=== PATIENT | female | born 1955 | race Caucasian/White ===

== ENCOUNTER 2022-02-02 07:52 | Inpatient (IN) ==
[2022-02-02] MEDS ORDERED: ENOXAPARIN 100 MG/ML SYRINGE SUBCUT STA (08:11)
[2022-02-02] MEDS ORDERED: ASPIRIN 325 MG TABLET PO STA (08:11)
[2022-02-02] MEDS ORDERED: NITROGLYCERIN SL 0.4 MG TABLET SL PRN (08:11)
[2022-02-02 08:30] LABS: Basophils # 0.1 10*3/uL (0.0-0.2); Basophils % 1.1 % (0.0-0.8); Eosinophils # 0.1 10*3/uL (0.0-0.87); Eosinophils % 1.6 % (0.00-10.9); Hematocrit 40.9 VOL% (35.7-47.0); Hemoglobin 13.1 GM/DL (12.0-16.0); Immature Granulocytes % 0.4 %; Immature Granulocytes Absolute 0.02 #; Lymphocytes # 1.2 10*3/uL (1.4-4.0); Lymphocytes % 21.1 % (21.3-54.2); Mean Corpuscular Volume 100.2 FL (87-102); Mean Platelet Volume 10.2 FL (9.6-12.0); Monocytes # 0.5 10*3/uL (0.11-0.8); Monocytes % 8.5 % (1.7-12.7); Neutrophils % 67.3 % (38.7-73.9); Platelet Count 212 T/CUMM (130-400); Red Blood Count 4.08 MC/CUMM (3.8-5.5); Red Cell Distribution Width 13.1 % (9.3-17.3); White Blood Count 5.6 T/CUMM (4-12)
[2022-02-02 08:56] LABS: Albumin 3.6 G/DL (3.4-5.0); Bilirubin,Total 0.4 MG/DL (0.20-1.00); Calcium 8.9 MG/DL (8.5-10.1); Osmolality,Calculated 282.4 MOS/KG (273-304); Potassium 3.5 MMOL/L (3.5-5.1); Total Protein 7.2 G/DL (6.4-8.2)
[2022-02-02] MEDS ORDERED: ONDANSETRON 4 MG/2 ML VIAL IV PRN (09:29)
[2022-02-02] MEDS ORDERED: DEXTROSE 50% 25 GM/50 ML VIAL IV PRN (09:49)
[2022-02-02] MEDS ORDERED: GLUCAGON 1 MG VIAL IM PRN (09:49)
[2022-02-02] MEDS ORDERED: DEXTROSE 10% 250 ML BAG IV PRN (09:49)
[2022-02-02 09:57] LABS: PT Patient Result 10.7 SECS (10.1-12.1)
[2022-02-02] MEDS: FAMOTIDINE 20 MG/2 ML VIAL IV SCH ×2 (10:06→21:23)
[2022-02-02] MEDS: SODIUM CHLORIDE 0.9% 1,000 ML IV SCH ×3 (10:06→23:25)
[2022-02-02] MEDS: ALBUTEROL 2.5 MG/3 ML NEB RESP TX PRN (10:20)
[2022-02-02 10:31] LABS: ABG Base Excess 1.1 MMOL/L (-2.5-2.5); ABG HCO3 25.4 MMOL/L (20-26); ABG Oxygen Saturation 96.8 % (95-100); ABG PCO2 39.9 MM HG (35-48); ABG PH 7.416 (7.35-7.45); ABG PO2 93.5 MM HG (80-95); ABG TCO2 22.2 MMOL/L (23-27)
[2022-02-02 11:33] LABS: Bacteria,Urine Occasional /HPF (Few); Hyaline Casts,Urine 7 /LPF (0-3); Mucus,Urine Occasional /LPF (Occasional); RBC,Urine 5 /HPF (0-4); Squamous Epithelial Cell,Urine Occasional /HPF (0-10)
[2022-02-02 11:35] LABS: Bilirubin,Urine Negative (Negative); Blood, Urine Negative (Negative); Glucose,Urine (UA) Negative (Negative); Ketones,Urine Negative (Negative); Nitrite,Urine Negative (Negative); Protein,Urine 30 mg/dL (Negative); Urine Appearance Clear (Clear); Urine Color Yellow (Yellow); Urine Urobilinogen 0.2 eU/dL (<2.0)
[2022-02-02] MEDS: INSULIN LISPRO 100 UNIT/ML SUBCUT SCH ×3 (12:38→23:48)
[2022-02-02] MEDS ORDERED: fentaNYL 100 MCG/2 ML VIAL ONE (12:42)
[2022-02-02] MEDS ORDERED: MIDAZOLAM 2 MG/2 ML VIAL ONE (12:42)
[2022-02-02] MEDS ORDERED: ATORVASTATIN 20 MG TABLET PO SCH (21:00)
[2022-02-02] MEDS ORDERED: ENOXAPARIN 150 MG/ML SYRINGE SUBCUT SCH (21:00)
[2022-02-02] MEDS: ERGOCALCIFEROL 50,000 UNIT CAPSULE PO SCH (21:22)
[2022-02-02] MEDS: MELATONIN 3 MG TABLET PO SCH (21:22)
[2022-02-02] MEDS: sulfaSALAzine 500 MG TABLET PO SCH (21:22)
[2022-02-02] MEDS: APIXABAN 5 MG TABLET PO SCH (21:23)
[2022-02-02] MEDS: MORPHINE 2 MG/1 ML SYRINGE IV PRN (23:27)
[2022-02-03] MEDS: MORPHINE 2 MG/1 ML SYRINGE IV PRN ×3 (03:36→21:02)
[2022-02-03 05:15] LABS: Basophils # 0.1 10*3/uL (0.0-0.2); Basophils % 0.9 % (0.0-0.8); Hematocrit 34.4 VOL% (35.7-47.0); Hemoglobin 11.3 GM/DL (12.0-16.0); Immature Granulocytes % 0.4 %; Immature Granulocytes Absolute 0.03 #; Lymphocytes # 1.4 10*3/uL (1.4-4.0); Lymphocytes % 17.3 % (21.3-54.2); Mean Corpuscular HGB Conc 32.8 GM/DL (32-36); Mean Corpuscular Volume 99.1 FL (87-102); Mean Platelet Volume 9.6 FL (9.6-12.0); Monocytes # 0.9 10*3/uL (0.11-0.8); Monocytes % 10.7 % (1.7-12.7); Neutrophils % 70.7 % (38.7-73.9); Platelet Count 190 T/CUMM (130-400); Red Blood Count 3.47 MC/CUMM (3.8-5.5)
[2022-02-03 05:59] LABS: Calcium 8.2 MG/DL (8.5-10.1); Osmolality,Calculated 282.1 MOS/KG (273-304); Potassium 2.9 MMOL/L (3.5-5.1); Risk Ratio 3.45; Thyroid Stimulating Hormone 3.54 uIU/ml (0.358-3.74); VLDL Cholesterol 17.2 MG/DL
[2022-02-03] MEDS: INSULIN LISPRO 100 UNIT/ML SUBCUT SCH ×3 (06:27→18:08)
[2022-02-03] MEDS: POTASSIUM CHLORIDE 20 MEQ TABLET PO PRN ×2 (06:46→08:44)
[2022-02-03] MEDS: ASPIRIN EC 81 MG TABLET PO SCH (08:43)
[2022-02-03] MEDS: sulfaSALAzine 500 MG TABLET PO SCH ×2 (08:43→21:02)
[2022-02-03] MEDS: atenoloL 50 MG TABLET PO SCH (08:43)
[2022-02-03] MEDS: OXYBUTYNIN XL 10 MG TABLET PO SCH (08:43)
[2022-02-03] MEDS: ACYCLOVIR 200 MG CAPSULE PO SCH (08:43)
[2022-02-03] MEDS: LOSARTAN 25 MG TABLET PO SCH (08:44)
[2022-02-03] MEDS: APIXABAN 5 MG TABLET PO SCH ×2 (08:44→21:02)
[2022-02-03] MEDS: CHLORTHALIDONE 25 MG TABLET PO SCH (08:44)
[2022-02-03] MEDS: FAMOTIDINE 20 MG/2 ML VIAL IV SCH ×2 (09:00→21:03)
[2022-02-03] MEDS ORDERED: ALTEPLASE IV ONE ×2 (09:30→10:00)
[2022-02-03] MEDS ORDERED: NS IV ONE ×2 (09:30→10:00)
[2022-02-03] MEDS ORDERED: MIDAZOLAM 2 MG/2 ML VIAL ONE (09:54)
[2022-02-03] MEDS ORDERED: fentaNYL 100 MCG/2 ML VIAL ONE (09:54)
[2022-02-03] MEDS ORDERED: SODIUM CHLORIDE 0.9% 1,000 ML IV SCH ×2 (10:27→11:00)
[2022-02-03] MEDS ORDERED: FUROSEMIDE 40 MG/4 ML VIAL IV ONE (10:30)
[2022-02-03] MEDS ORDERED: POTASSIUM CHLORIDE 20 MEQ TABLET PO ONE (10:31)
[2022-02-03] MEDS: HEPARIN DRIP 25,000 UNITS/500 ML PREMIX IV SCH (11:47)
[2022-02-03 12:14] LABS: INR 1.1; PT Patient Result 11.7 SECS (10.1-12.1); Partial Thromboplastin Time 28.7 SECS (23.7-32.9)
[2022-02-03 14:09] LABS: INR 1.1; PT Patient Result 11.9 SECS (10.1-12.1)
[2022-02-03] MEDS ORDERED: MAGNESIUM SULF RIDER 2 GM/50 ML PREMIX IV ONE (14:42)
[2022-02-03] MEDS: ALBUTEROL 2.5 MG/3 ML NEB RESP TX PRN (18:10)
[2022-02-03] MEDS: ATORVASTATIN 80 MG TABLET PO SCH (21:02)
[2022-02-03] MEDS: MELATONIN 3 MG TABLET PO SCH (21:02)
[2022-02-04] MEDS: INSULIN LISPRO 100 UNIT/ML SUBCUT SCH ×5 (00:14→23:25)
[2022-02-04] MEDS: MORPHINE 2 MG/1 ML SYRINGE IV PRN ×3 (03:41→12:02)
[2022-02-04 06:05] LABS: INR 1.1; PT Patient Result 12.1 SECS (10.1-12.1)
[2022-02-04 06:16] LABS: Albumin 2.9 G/DL (3.4-5.0); Bilirubin,Total 0.8 MG/DL (0.20-1.00); Calcium 8.6 MG/DL (8.5-10.1); Osmolality,Calculated 275.8 MOS/KG (273-304); Potassium 3.2 MMOL/L (3.5-5.1); Total Protein 6.9 G/DL (6.4-8.2)
[2022-02-04] MEDS: POTASSIUM CHLORIDE 20 MEQ TABLET PO PRN ×2 (06:41→10:00)
[2022-02-04] MEDS ORDERED: POTASSIUM CHLORIDE 20 MEQ TABLET PO ONE (08:11)
[2022-02-04] MEDS: LOSARTAN 25 MG TABLET PO SCH (09:20)
[2022-02-04] MEDS: ASPIRIN EC 81 MG TABLET PO SCH (09:20)
[2022-02-04] MEDS: APIXABAN 5 MG TABLET PO SCH ×2 (09:21→21:36)
[2022-02-04] MEDS: OXYBUTYNIN XL 10 MG TABLET PO SCH (09:21)
[2022-02-04] MEDS: atenoloL 50 MG TABLET PO SCH (09:21)
[2022-02-04] MEDS: ACYCLOVIR 200 MG CAPSULE PO SCH (09:22)
[2022-02-04] MEDS: CHLORTHALIDONE 25 MG TABLET PO SCH (09:26)
[2022-02-04] MEDS: FAMOTIDINE 20 MG/2 ML VIAL IV SCH ×2 (09:26→21:35)
[2022-02-04] MEDS: sulfaSALAzine 500 MG TABLET PO SCH ×2 (09:26→21:36)
[2022-02-04] MEDS ORDERED: ALPRAZolam 0.5 MG TABLET PO PRN (10:14)
[2022-02-04 10:27] LABS: Basophils # 0.1 10*3/uL (0.0-0.2); Basophils % 0.4 % (0.0-0.8); Hematocrit 36.6 VOL% (35.7-47.0); Immature Granulocytes % 0.8 %; Immature Granulocytes Absolute 0.12 #; Lymphocytes # 0.7 10*3/uL (1.4-4.0); Lymphocytes % 4.7 % (21.3-54.2); Mean Corpuscular HGB Conc 32.8 GM/DL (32-36); Monocytes # 1.5 10*3/uL (0.11-0.8); Monocytes % 9.4 % (1.7-12.7); Neutrophils % 84.7 % (38.7-73.9); Platelet Count 218 T/CUMM (130-400); Red Blood Count 3.66 MC/CUMM (3.8-5.5); Red Cell Distribution Width 13.1 % (9.3-17.3); White Blood Count 15.6 T/CUMM (4-12)
[2022-02-04 10:49] LABS: INR 1.1; PT Patient Result 11.9 SECS (10.1-12.1); Partial Thromboplastin Time 37.2 SECS (23.7-32.9)
[2022-02-04 11:16] LABS: Partial Thromboplastin Time 37.6 SECS (23.7-32.9)
[2022-02-04] MEDS: HEPARIN DRIP 25,000 UNITS/500 ML PREMIX IV SCH ×2 (11:34→12:47)
[2022-02-04] MEDS: NAPROXEN 250 MG TABLET PO PRN (12:02)
[2022-02-04 13:18] LABS: Band Neutrophils 1 % (0-10); Hypochromia Slight; Lymphocytes 5 % (20-55); Microcytosis Slight; Polychromasia Few; Total Cells Counted 100
[2022-02-04] MEDS ORDERED: LACTATED RINGERS 500 ML IV ONE ×2 (17:40→22:55)
[2022-02-04 17:44] LABS: Hematocrit 32.2 VOL% (35.7-47.0); Hemoglobin 10.5 GM/DL (12.0-16.0)
[2022-02-04] MEDS: ATORVASTATIN 80 MG TABLET PO SCH (21:35)
[2022-02-04] MEDS: MELATONIN 3 MG TABLET PO SCH (21:35)
[2022-02-04 23:32] LABS: Partial Thromboplastin Time 31.7 SECS (23.7-32.9)
[2022-02-05] MEDS: NAPROXEN 250 MG TABLET PO PRN ×2 (02:35→11:22)
[2022-02-05 05:43] LABS: Basophils # 0.1 10*3/uL (0.0-0.2); Basophils % 0.5 % (0.0-0.8); Eosinophils # 0.1 10*3/uL (0.0-0.87); Eosinophils % 0.6 % (0.00-10.9); Hematocrit 33.7 VOL% (35.7-47.0); Immature Granulocytes % 0.8 %; Immature Granulocytes Absolute 0.09 #; Lymphocytes % 8.5 % (21.3-54.2); Mean Corpuscular HGB Conc 32.6 GM/DL (32-36); Mean Corpuscular Volume 100.6 FL (87-102); Mean Platelet Volume 12.4 FL (9.6-12.0); Monocytes # 1.5 10*3/uL (0.11-0.8); Monocytes % 12.7 % (1.7-12.7); Neutrophils % 76.9 % (38.7-73.9); Platelet Count 106 T/CUMM (130-400); Red Blood Count 3.35 MC/CUMM (3.8-5.5); White Blood Count 11.7 T/CUMM (4-12)
[2022-02-05 05:48] LABS: Calcium 8.1 MG/DL (8.5-10.1); Osmolality,Calculated 266.5 MOS/KG (273-304); Potassium 4.4 MMOL/L (3.5-5.1)
[2022-02-05] MEDS: INSULIN LISPRO 100 UNIT/ML SUBCUT SCH ×3 (05:50→18:54)
[2022-02-05] MEDS: ACYCLOVIR 200 MG CAPSULE PO SCH (09:14)
[2022-02-05] MEDS: POTASSIUM CHLORIDE 20 MEQ TABLET PO SCH (09:14)
[2022-02-05] MEDS: APIXABAN 5 MG TABLET PO SCH ×2 (09:14→22:11)
[2022-02-05] MEDS: DOCUSATE SODIUM 100 MG CAPSULE PO SCH (09:14)
[2022-02-05] MEDS: ASPIRIN EC 81 MG TABLET PO SCH (09:15)
[2022-02-05] MEDS: ERGOCALCIFEROL 50,000 UNIT CAPSULE PO SCH (09:15)
[2022-02-05] MEDS: LOSARTAN 25 MG TABLET PO SCH (09:15)
[2022-02-05] MEDS: sulfaSALAzine 500 MG TABLET PO SCH ×2 (09:15→22:11)
[2022-02-05] MEDS: POLYETHYLENE GLYCOL POWDER 17 GM PACK PO SCH (09:16)
[2022-02-05] MEDS: OXYBUTYNIN XL 10 MG TABLET PO SCH (09:23)
[2022-02-05] MEDS: FAMOTIDINE 20 MG/2 ML VIAL IV SCH ×2 (10:46→22:11)
[2022-02-05 11:14] LABS: Partial Thromboplastin Time 29.1 SECS (23.7-32.9)
[2022-02-05] MEDS: HEPARIN DRIP 25,000 UNITS/500 ML PREMIX IV SCH (11:40)
[2022-02-05] MEDS: MELATONIN 3 MG TABLET PO SCH (22:11)
[2022-02-05] MEDS: ATORVASTATIN 80 MG TABLET PO SCH (22:11)
[2022-02-05 23:02] LABS: Partial Thromboplastin Time 31.4 SECS (23.7-32.9)
[2022-02-06] MEDS: MORPHINE 2 MG/1 ML SYRINGE IV PRN ×3 (00:22→10:04)
[2022-02-06] MEDS: INSULIN LISPRO 100 UNIT/ML SUBCUT SCH ×4 (01:46→17:11)
[2022-02-06 06:12] LABS: Basophils # 0.1 10*3/uL (0.0-0.2); Basophils % 0.5 % (0.0-0.8); Eosinophils # 0.1 10*3/uL (0.0-0.87); Eosinophils % 0.5 % (0.00-10.9); Hematocrit 32.1 VOL% (35.7-47.0); Hemoglobin 10.3 GM/DL (12.0-16.0); Immature Granulocytes % 0.7 %; Immature Granulocytes Absolute 0.08 #; Lymphocytes # 0.9 10*3/uL (1.4-4.0); Lymphocytes % 8.8 % (21.3-54.2); Mean Corpuscular HGB Conc 32.1 GM/DL (32-36); Mean Corpuscular Volume 100.9 FL (87-102); Mean Platelet Volume 10.2 FL (9.6-12.0); Monocytes # 1.3 10*3/uL (0.11-0.8); Monocytes % 12.2 % (1.7-12.7); Neutrophils % 77.3 % (38.7-73.9); Platelet Count 234 T/CUMM (130-400); Red Blood Count 3.18 MC/CUMM (3.8-5.5); Red Cell Distribution Width 12.8 % (9.3-17.3); White Blood Count 10.7 T/CUMM (4-12)
[2022-02-06 06:33] LABS: Calcium 8.6 MG/DL (8.5-10.1); Osmolality,Calculated 271.2 MOS/KG (273-304); Potassium 4.5 MMOL/L (3.5-5.1)
[2022-02-06] MEDS: BACILLUS COAGULANS CAPLET PO SCH (10:02)
[2022-02-06] MEDS: ACYCLOVIR 200 MG CAPSULE PO SCH (10:02)
[2022-02-06] MEDS: OXYBUTYNIN XL 10 MG TABLET PO SCH (10:02)
[2022-02-06] MEDS: FAMOTIDINE 20 MG/2 ML VIAL IV SCH ×2 (10:02→21:51)
[2022-02-06] MEDS: ASPIRIN EC 81 MG TABLET PO SCH (10:03)
[2022-02-06] MEDS: DOCUSATE SODIUM 100 MG CAPSULE PO SCH (10:03)
[2022-02-06] MEDS: POTASSIUM CHLORIDE 20 MEQ TABLET PO SCH (10:03)
[2022-02-06] MEDS: LOSARTAN 25 MG TABLET PO SCH (10:04)
[2022-02-06] MEDS: CHOLECALCIFEROL 5,000 UNIT TABLET PO SCH (10:04)
[2022-02-06] MEDS: POLYETHYLENE GLYCOL POWDER 17 GM PACK PO SCH (10:06)
[2022-02-06] MEDS ORDERED: KETOROLAC 30 MG/1 ML VIAL IV ONE (10:11)
[2022-02-06] MEDS ORDERED: FUROSEMIDE 40 MG/4 ML VIAL IV ONE (10:11)
[2022-02-06] MEDS: sulfaSALAzine 500 MG TABLET PO SCH ×2 (10:19→22:05)
[2022-02-06] MEDS: APIXABAN 5 MG TABLET PO SCH ×2 (11:10→21:51)
[2022-02-06] MEDS: NAPROXEN 250 MG TABLET PO PRN (11:11)
[2022-02-06 11:17] LABS: Partial Thromboplastin Time 31.6 SECS (23.7-32.9)
[2022-02-06] MEDS: CHLORTHALIDONE 25 MG TABLET PO SCH ×2 (14:27→14:29)
[2022-02-06] MEDS: atenoloL 50 MG TABLET PO SCH ×2 (14:28→14:30)
[2022-02-06] MEDS ORDERED: FUROSEMIDE 40 MG/4 ML VIAL IV SCH (16:00)
[2022-02-06] MEDS: ATORVASTATIN 80 MG TABLET PO SCH (21:51)
[2022-02-06] MEDS: MELATONIN 3 MG TABLET PO SCH (21:51)
[2022-02-07] MEDS: INSULIN LISPRO 100 UNIT/ML SUBCUT SCH ×4 (00:58→18:08)
[2022-02-07 05:31] LABS: Basophils # 0.1 10*3/uL (0.0-0.2); Basophils % 0.8 % (0.0-0.8); Eosinophils # 0.2 10*3/uL (0.0-0.87); Eosinophils % 2.6 % (0.00-10.9); Hematocrit 28.3 VOL% (35.7-47.0); Hemoglobin 9.3 GM/DL (12.0-16.0); Immature Granulocytes % 1.5 %; Immature Granulocytes Absolute 0.11 #; Lymphocytes # 0.7 10*3/uL (1.4-4.0); Mean Corpuscular HGB Conc 32.9 GM/DL (32-36); Mean Corpuscular Volume 100.4 FL (87-102); Mean Platelet Volume 9.9 FL (9.6-12.0); Monocytes # 1.2 10*3/uL (0.11-0.8); Monocytes % 15.7 % (1.7-12.7); Neutrophils % 70.4 % (38.7-73.9); Platelet Count 261 T/CUMM (130-400); Red Blood Count 2.82 MC/CUMM (3.8-5.5); Red Cell Distribution Width 13.1 % (9.3-17.3); White Blood Count 7.6 T/CUMM (4-12)
[2022-02-07 05:41] LABS: Calcium 8.4 MG/DL (8.5-10.1); Potassium 4.3 MMOL/L (3.5-5.1)
[2022-02-07 06:11] LABS: Eosinophils 5 % (0-10); Lymphocytes 11 % (20-55); Total Cells Counted 100
[2022-02-07 06:12] LABS: Platelet Estimate Adequate
[2022-02-07] MEDS: CHLORTHALIDONE 25 MG TABLET PO SCH (09:30)
[2022-02-07] MEDS: POLYETHYLENE GLYCOL POWDER 17 GM PACK PO SCH (09:42)
[2022-02-07] MEDS: POTASSIUM CHLORIDE 20 MEQ TABLET PO SCH (09:43)
[2022-02-07] MEDS: ASPIRIN EC 81 MG TABLET PO SCH (09:44)
[2022-02-07] MEDS: ACYCLOVIR 200 MG CAPSULE PO SCH (09:45)
[2022-02-07] MEDS: CHOLECALCIFEROL 5,000 UNIT TABLET PO SCH (09:46)
[2022-02-07] MEDS: DOCUSATE SODIUM 100 MG CAPSULE PO SCH (09:46)
[2022-02-07] MEDS: BACILLUS COAGULANS CAPLET PO SCH (09:46)
[2022-02-07] MEDS: APIXABAN 5 MG TABLET PO SCH ×2 (09:47→22:17)
[2022-02-07] MEDS: OXYBUTYNIN XL 10 MG TABLET PO SCH (09:48)
[2022-02-07] MEDS: atenoloL 50 MG TABLET PO SCH (09:50)
[2022-02-07] MEDS: FAMOTIDINE 20 MG/2 ML VIAL IV SCH ×2 (09:51→22:17)
[2022-02-07] MEDS: NAPROXEN 250 MG TABLET PO PRN (10:03)
[2022-02-07] MEDS: sulfaSALAzine 500 MG TABLET PO SCH ×2 (10:03→22:16)
[2022-02-07 12:45] LABS: Protein S Activity Plasma 132 % (65 - 160)
[2022-02-07 13:36] LABS: Antinuclear Ab, S 0.6 U
[2022-02-07] MEDS: MELATONIN 3 MG TABLET PO SCH (22:16)
[2022-02-07] MEDS: ATORVASTATIN 80 MG TABLET PO SCH (22:17)
[2022-02-08] MEDS: INSULIN LISPRO 100 UNIT/ML SUBCUT SCH ×5 (01:51→18:07)
[2022-02-08 05:13] LABS: Basophils # 0.1 10*3/uL (0.0-0.2); Basophils % 1.3 % (0.0-0.8); Eosinophils # 0.1 10*3/uL (0.0-0.87); Eosinophils % 2.7 % (0.00-10.9); Hematocrit 28.5 VOL% (35.7-47.0); Hemoglobin 9.4 GM/DL (12.0-16.0); Immature Granulocytes % 3.6 %; Immature Granulocytes Absolute 0.16 #; Lymphocytes # 0.7 10*3/uL (1.4-4.0); Lymphocytes % 16.6 % (21.3-54.2); Mean Corpuscular Volume 98.3 FL (87-102); Mean Platelet Volume 9.5 FL (9.6-12.0); Monocytes # 0.8 10*3/uL (0.11-0.8); Monocytes % 17.8 % (1.7-12.7); Platelet Count 265 T/CUMM (130-400); Red Cell Distribution Width 12.9 % (9.3-17.3); White Blood Count 4.5 T/CUMM (4-12)
[2022-02-08 05:34] LABS: Calcium 8.3 MG/DL (8.5-10.1); Potassium 3.7 MMOL/L (3.5-5.1)
[2022-02-08 05:52] LABS: Eosinophils 4 % (0-10); Hypochromia Slight; Lymphocytes 6 % (20-55); Platelet Estimate Normal; Total Cells Counted 100
[2022-02-08] MEDS: POLYETHYLENE GLYCOL POWDER 17 GM PACK PO SCH (08:03)
[2022-02-08] MEDS: BACILLUS COAGULANS CAPLET PO SCH (08:04)
[2022-02-08] MEDS: atenoloL 50 MG TABLET PO SCH (08:05)
[2022-02-08] MEDS: OXYBUTYNIN XL 10 MG TABLET PO SCH (08:05)
[2022-02-08] MEDS: ASPIRIN EC 81 MG TABLET PO SCH (08:05)
[2022-02-08] MEDS: POTASSIUM CHLORIDE 20 MEQ TABLET PO SCH (08:06)
[2022-02-08] MEDS: ACYCLOVIR 200 MG CAPSULE PO SCH (08:06)
[2022-02-08] MEDS: APIXABAN 5 MG TABLET PO SCH ×2 (08:07→21:59)
[2022-02-08] MEDS: DOCUSATE SODIUM 100 MG CAPSULE PO SCH (08:07)
[2022-02-08] MEDS: sulfaSALAzine 500 MG TABLET PO SCH ×2 (08:08→21:59)
[2022-02-08] MEDS: CHOLECALCIFEROL 5,000 UNIT TABLET PO SCH (08:08)
[2022-02-08] MEDS: FAMOTIDINE 20 MG/2 ML VIAL IV SCH ×2 (09:14→22:00)
[2022-02-08] MEDS: KETOROLAC 30 MG/1 ML VIAL IV PRN ×2 (10:26→16:45)
[2022-02-08] MEDS: methylPREDNISolone SOD SUC 40 MG/1 ML VIAL IV SCH ×2 (10:27→17:46)
[2022-02-08] MEDS: ALBUTEROL/IPRATROPIUM 3 ML NEB RESP TX SCH ×3 (10:35→19:50)
[2022-02-08] MEDS: ATORVASTATIN 80 MG TABLET PO SCH (21:59)
[2022-02-08] MEDS: MELATONIN 3 MG TABLET PO SCH (21:59)
[2022-02-09] MEDS: ALBUTEROL/IPRATROPIUM 3 ML NEB RESP TX SCH ×4 (00:35→19:36)
[2022-02-09] MEDS: INSULIN LISPRO 100 UNIT/ML SUBCUT SCH ×4 (00:46→18:38)
[2022-02-09] MEDS: methylPREDNISolone SOD SUC 40 MG/1 ML VIAL IV SCH ×3 (03:19→17:18)
[2022-02-09 06:24] LABS: Basophils % 0.1 % (0.0-0.8); Hematocrit 29.4 VOL% (35.7-47.0); Hemoglobin 9.6 GM/DL (12.0-16.0); Immature Granulocytes % 1.6 %; Immature Granulocytes Absolute 0.24 #; Lymphocytes # 0.9 10*3/uL (1.4-4.0); Lymphocytes % 5.7 % (21.3-54.2); Mean Corpuscular HGB Conc 32.7 GM/DL (32-36); Mean Corpuscular Volume 97.7 FL (87-102); Mean Platelet Volume 9.4 FL (9.6-12.0); NRBC # 0.02 10*3/uL; Neutrophils % 79.6 % (38.7-73.9); Platelet Count 322 T/CUMM (130-400); Red Blood Count 3.01 MC/CUMM (3.8-5.5); Red Cell Distribution Width 13.2 % (9.3-17.3)
[2022-02-09 06:54] LABS: Calcium 8.7 MG/DL (8.5-10.1); Osmolality,Calculated 269.4 MOS/KG (273-304); Potassium 4.1 MMOL/L (3.5-5.1)
[2022-02-09] MEDS: FAMOTIDINE 20 MG/2 ML VIAL IV SCH ×2 (09:43→22:17)
[2022-02-09] MEDS: BACILLUS COAGULANS CAPLET PO SCH (09:44)
[2022-02-09] MEDS: POLYETHYLENE GLYCOL POWDER 17 GM PACK PO SCH (09:44)
[2022-02-09] MEDS: sulfaSALAzine 500 MG TABLET PO SCH ×2 (09:44→22:17)
[2022-02-09] MEDS: OXYBUTYNIN XL 10 MG TABLET PO SCH (09:44)
[2022-02-09] MEDS: POTASSIUM CHLORIDE 20 MEQ TABLET PO SCH (09:45)
[2022-02-09] MEDS: CHOLECALCIFEROL 5,000 UNIT TABLET PO SCH (09:45)
[2022-02-09] MEDS: atenoloL 50 MG TABLET PO SCH (09:45)
[2022-02-09] MEDS: ACYCLOVIR 200 MG CAPSULE PO SCH (09:45)
[2022-02-09] MEDS: DOCUSATE SODIUM 100 MG CAPSULE PO SCH (09:45)
[2022-02-09] MEDS: ASPIRIN EC 81 MG TABLET PO SCH (09:45)
[2022-02-09] MEDS: ERGOCALCIFEROL 50,000 UNIT CAPSULE PO SCH (09:45)
[2022-02-09] MEDS: APIXABAN 5 MG TABLET PO SCH (09:45)
[2022-02-09] MEDS: ATORVASTATIN 80 MG TABLET PO SCH (22:17)
[2022-02-09] MEDS: MELATONIN 3 MG TABLET PO SCH (22:17)
[2022-02-10] MEDS: INSULIN LISPRO 100 UNIT/ML SUBCUT SCH ×4 (00:18→17:59)
[2022-02-10] MEDS: ALBUTEROL/IPRATROPIUM 3 ML NEB RESP TX SCH ×4 (01:27→19:36)
[2022-02-10] MEDS: methylPREDNISolone SOD SUC 40 MG/1 ML VIAL IV SCH ×3 (03:25→17:48)
[2022-02-10 05:45] LABS: Basophils % 0.3 % (0.0-0.8); Eosinophils % 0.1 % (0.00-10.9); Hematocrit 27.8 VOL% (35.7-47.0); Hemoglobin 8.9 GM/DL (12.0-16.0); Immature Granulocytes % 2.2 %; Immature Granulocytes Absolute 0.25 #; Lymphocytes # 0.9 10*3/uL (1.4-4.0); Lymphocytes % 7.9 % (21.3-54.2); Mean Corpuscular Volume 100.7 FL (87-102); Mean Platelet Volume 9.3 FL (9.6-12.0); Monocytes # 1.4 10*3/uL (0.11-0.8); Monocytes % 12.5 % (1.7-12.7); Platelet Count 347 T/CUMM (130-400); Red Blood Count 2.76 MC/CUMM (3.8-5.5); Red Cell Distribution Width 13.1 % (9.3-17.3); White Blood Count 11.1 T/CUMM (4-12)
[2022-02-10 06:28] LABS: Calcium 8.7 MG/DL (8.5-10.1); Osmolality,Calculated 274.8 MOS/KG (273-304)
[2022-02-10 08:31] LABS: F5DNA Reviewed By SEE COMMENTS; Factor V Leiden (R506Q) Mutati Negative (Negative); PTNT Reviewed By SEE COMMENTS
[2022-02-10 08:31] LABS: F5DNA Reviewed By SEE COMMENTS; Factor V Leiden (R506Q) Mutati Negative (Negative)
[2022-02-10] MEDS: BACILLUS COAGULANS CAPLET PO SCH (09:10)
[2022-02-10] MEDS: ASPIRIN EC 81 MG TABLET PO SCH (09:10)
[2022-02-10] MEDS: POTASSIUM CHLORIDE 20 MEQ TABLET PO SCH (09:10)
[2022-02-10] MEDS: ACYCLOVIR 200 MG CAPSULE PO SCH (09:10)
[2022-02-10] MEDS: atenoloL 50 MG TABLET PO SCH (09:10)
[2022-02-10] MEDS: DOCUSATE SODIUM 100 MG CAPSULE PO SCH (09:10)
[2022-02-10] MEDS: OXYBUTYNIN XL 10 MG TABLET PO SCH (09:10)
[2022-02-10] MEDS: CHOLECALCIFEROL 5,000 UNIT TABLET PO SCH (09:10)
[2022-02-10] MEDS: sulfaSALAzine 500 MG TABLET PO SCH ×2 (09:11→21:24)
[2022-02-10] MEDS: POLYETHYLENE GLYCOL POWDER 17 GM PACK PO SCH (09:11)
[2022-02-10] MEDS: FAMOTIDINE 20 MG/2 ML VIAL IV SCH ×2 (11:06→21:22)
[2022-02-10] MEDS: APIXABAN 5 MG TABLET PO SCH ×2 (11:06→21:22)
[2022-02-10] MEDS ORDERED: IBUPROFEN 400 MG TABLET PO PRN (14:13)
[2022-02-10] MEDS: MELATONIN 3 MG TABLET PO SCH (21:22)
[2022-02-10] MEDS: ATORVASTATIN 80 MG TABLET PO SCH (21:22)
[2022-02-11] MEDS: ALBUTEROL/IPRATROPIUM 3 ML NEB RESP TX SCH ×5 (00:53→23:49)
[2022-02-11] MEDS: methylPREDNISolone SOD SUC 40 MG/1 ML VIAL IV SCH ×2 (01:08→09:46)
[2022-02-11] MEDS: INSULIN LISPRO 100 UNIT/ML SUBCUT SCH ×4 (01:13→18:19)
[2022-02-11 08:19] LABS: Basophils % 0.2 % (0.0-0.8); Hematocrit 28.2 VOL% (35.7-47.0); Immature Granulocytes % 3.1 %; Immature Granulocytes Absolute 0.43 #; Lymphocytes # 0.8 10*3/uL (1.4-4.0); Lymphocytes % 5.7 % (21.3-54.2); Mean Corpuscular HGB Conc 31.9 GM/DL (32-36); Mean Corpuscular Volume 99.6 FL (87-102); Monocytes # 1.2 10*3/uL (0.11-0.8); Monocytes % 8.7 % (1.7-12.7); Neutrophils % 82.3 % (38.7-73.9); Platelet Count 393 T/CUMM (130-400); Red Blood Count 2.83 MC/CUMM (3.8-5.5); Red Cell Distribution Width 13.2 % (9.3-17.3); White Blood Count 13.7 T/CUMM (4-12)
[2022-02-11] MEDS: POLYETHYLENE GLYCOL POWDER 17 GM PACK PO SCH (09:36)
[2022-02-11] MEDS: POTASSIUM CHLORIDE 20 MEQ TABLET PO SCH (09:37)
[2022-02-11] MEDS: DOCUSATE SODIUM 100 MG CAPSULE PO SCH (09:38)
[2022-02-11] MEDS: OXYBUTYNIN XL 10 MG TABLET PO SCH (09:38)
[2022-02-11] MEDS: sulfaSALAzine 500 MG TABLET PO SCH ×2 (09:38→22:25)
[2022-02-11] MEDS: RIVAROXABAN 20 MG TABLET PO SCH (09:38)
[2022-02-11] MEDS: ACYCLOVIR 200 MG CAPSULE PO SCH (09:38)
[2022-02-11] MEDS: ASPIRIN EC 81 MG TABLET PO SCH (09:38)
[2022-02-11] MEDS: atenoloL 50 MG TABLET PO SCH (09:38)
[2022-02-11] MEDS: CHOLECALCIFEROL 5,000 UNIT TABLET PO SCH (09:39)
[2022-02-11] MEDS: BACILLUS COAGULANS CAPLET PO SCH (09:39)
[2022-02-11] MEDS: FAMOTIDINE 20 MG/2 ML VIAL IV SCH (09:48)
[2022-02-11 10:26] LABS: Protein C Activity Plasma 91 % (70 - 150)
[2022-02-11] MEDS: ATORVASTATIN 80 MG TABLET PO SCH (22:25)
[2022-02-11] MEDS: MELATONIN 3 MG TABLET PO SCH (22:25)
[2022-02-11] MEDS: FAMOTIDINE 20 MG TABLET PO SCH (22:25)
[2022-02-11] MEDS: predniSONE 20 MG TABLET PO SCH (22:25)
[2022-02-12] MEDS: INSULIN LISPRO 100 UNIT/ML SUBCUT SCH ×3 (02:05→13:21)
[2022-02-12 05:58] LABS: Basophils % 0.2 % (0.0-0.8); Hematocrit 28.9 VOL% (35.7-47.0); Hemoglobin 9.2 GM/DL (12.0-16.0); Immature Granulocytes Absolute 0.71 #; Lymphocytes # 0.6 10*3/uL (1.4-4.0); Lymphocytes % 4.2 % (21.3-54.2); Mean Corpuscular HGB Conc 31.8 GM/DL (32-36); Mean Corpuscular Volume 98.3 FL (87-102); Monocytes # 1.1 10*3/uL (0.11-0.8); Monocytes % 7.8 % (1.7-12.7); NRBC # 0.02 10*3/uL; Neutrophils % 82.8 % (38.7-73.9); Platelet Count 451 T/CUMM (130-400); Red Blood Count 2.94 MC/CUMM (3.8-5.5); Red Cell Distribution Width 13.3 % (9.3-17.3); White Blood Count 14.1 T/CUMM (4-12)
[2022-02-12 06:22] LABS: Calcium 8.8 MG/DL (8.5-10.1); Potassium 4.5 MMOL/L (3.5-5.1)
[2022-02-12 06:28] LABS: Band Neutrophils 2 % (0-10); Lymphocytes 2 % (20-55); Polychromasia Slight; Total Cells Counted 100
[2022-02-12 06:29] LABS: Microcytosis Slight; Platelet Estimate Increased
[2022-02-12] MEDS: ALBUTEROL/IPRATROPIUM 3 ML NEB RESP TX SCH (07:45)
[2022-02-12] MEDS: POLYETHYLENE GLYCOL POWDER 17 GM PACK PO SCH (08:57)
[2022-02-12] MEDS: BACILLUS COAGULANS CAPLET PO SCH (08:57)
[2022-02-12] MEDS: ASPIRIN EC 81 MG TABLET PO SCH (08:57)
[2022-02-12] MEDS: atenoloL 50 MG TABLET PO SCH (08:57)
[2022-02-12] MEDS: DOCUSATE SODIUM 100 MG CAPSULE PO SCH (08:57)
[2022-02-12] MEDS: OXYBUTYNIN XL 10 MG TABLET PO SCH (08:57)
[2022-02-12] MEDS: ERGOCALCIFEROL 50,000 UNIT CAPSULE PO SCH (08:57)
[2022-02-12] MEDS: FAMOTIDINE 20 MG TABLET PO SCH (08:58)
[2022-02-12] MEDS: CHOLECALCIFEROL 5,000 UNIT TABLET PO SCH (08:58)
[2022-02-12] MEDS: POTASSIUM CHLORIDE 20 MEQ TABLET PO SCH (08:58)
[2022-02-12] MEDS: RIVAROXABAN 20 MG TABLET PO SCH (08:58)
[2022-02-12] MEDS: ACYCLOVIR 200 MG CAPSULE PO SCH (08:58)
[2022-02-12] MEDS: predniSONE 20 MG TABLET PO SCH (08:58)
[2022-02-12 11:48] VITALS: BP 117/70
[2022-02-12] MEDS: sulfaSALAzine 500 MG TABLET PO SCH (13:20)
== END 2022-02-12 13:04 | disposition home health service (06) | DRG 163 ==
LOC: N.ED 07:52 → SUATTDRO 09:53 → N.EDINP 09:53 → N.CC 09:58 → N.5E 02-05 13:57
PROVIDERS: ADMIT Internal Medicine; ATTEND Internal Medicine